=== PATIENT | male | born 1945 | race Caucasian/White ===

== ENCOUNTER 2017-05-08 18:39 | Observation (INO) ==
[2017-05-08 20:29] LABS: Bilirubin,Urine Negative (Negative); Blood,Urine Small (Negative); Clarity,Urine Clear (Clear); Color,Urine Yellow (Yellow); Glucose,Urine (UA) Normal (Normal); Ketones,Urine Trace mg/dL (Negative); Leukocyte Esterase,Urine Negative (Negative); Nitrite,Urine Negative (Negative); Protein,Urine Negative (Neg-Trace); Specific Gravity,Urine 1.021 (1.010-1.025); Urobilinogen,Urine Normal (Normal)
[2017-05-08 20:34] LABS: Bacteria,Urine None Seen per hpf (None-Few); Hyaline Casts,Urine None Seen per lpf (None-Few); Squamous Epithelial Cell,Urine None Seen per lpf (None-Few); WBC,Urine 0-3 per hpf (0-3)
[2017-05-08] MEDS ORDERED: 0.9 % Sodium Chloride 1,000 ML IVC ONE (21:13)
[2017-05-08] MEDS ORDERED: *HR* Morphine 2 MG/ML SYRINGE IVP ONE (21:13)
[2017-05-08] MEDS ORDERED: Ondansetron 4 MG/2 ML VIAL IVP ONE ×2 (21:13→23:45)
[2017-05-08 21:20] LABS: Basophils % 0.1 %; Hematocrit 37.7 % (37.5-50.1); Hemoglobin 12.4 g/dL (12.9-16.9); Immature Granulocytes % 0.6 % (0-4); Lymphocytes # 0.7 K/mcL (0.6-4.6); Lymphocytes % 7.8 %; Mean Corpuscular HGB Conc 32.9 g/dL (31.6-35.5); Mean Corpuscular Hemoglobin 28.8 pg (28.0-33.3); Mean Corpuscular Volume 87.7 fL (83.0-100.0); Monocytes # 0.3 K/mcL (0.0-1.3); Monocytes % 3.4 %; Neutrophils # 7.4 K/mcL (1.6-8.9); Platelet Count 211 K/mcL (140-400); Segmented Neutrophils % 88.1 %
[2017-05-08 21:36] LABS: Alanine Aminotransferase 22 Units/L (7-52); Albumin 3.8 g/dL (3.5-5.7); Albumin/Globulin Ratio 1.7 (1.1-2.2); Alkaline Phosphatase 56 Units/L (34-104); Aspartate Amino Transferase 22 Units/L (13-39); BUN/Creatinine Ratio 15 (6-26); Bilirubin,Direct 0.1 mg/dL (0.0-0.2); Bilirubin,Indirect 0.3 mg/dL (0.0-1.2); Bilirubin,Total 0.4 mg/dL (0.3-1.0); Blood Urea Nitrogen 12 mg/dL (8-23); Calcium 8.6 mg/dL (8.6-10.3); Carbon Dioxide 24 mEq/L (23-29); Chloride 104 mEq/L (98-107); Globulin 2.3 g/dL (2.4-3.5); Glucose 120 mg/dL (70-105); Lipase 13 Units/L (11-82); Osmolality,Calculated 281 (280-300); Potassium 3.5 mEq/L (3.5-5.1); Sodium 135 mEq/L (136-145); Total Protein 6.1 g/dL (6.4-8.9); eGFR For African Americans > 60 (> 60); eGFR For Non-African Americans > 60 (> 60)
--- NOTE | 2017-05-08 21:44 | Emergency Department Note ---
Disposition Clinical Impression: Intractable abdominal pain Abdominal pain Qualifiers: Abdominal location: unspecified location Qualified Code(s): R10.9 - Unspecified abdominal pain Disposition: Admitted As Inpatient Condition: Good [facility] - [facility] [Outside] Time of Disposition: 00:57 Abdominal Pain HPI - General Chief Complaint: ED Abdominal Pain Stated Complaint: abdominal pain Time Seen by Provider: 05/08/17 18:47 Source: EMS Nursing Notes Reviewed: Yes Vital Signs Reviewed: Yes - History of Present Illness HPI Narrative: Patient is a 71-year-old male that presents to the emergency department for excruciating abdominal pain that began 2 days ago. He states that it begins just under the xiphoid process and radiates down to the lower abdomen. The pain is located only in the center and not on the sides of his belly. Patient rates pain as an 8 out of 10 and describes as crampy. Nothing seems to make this pain better. Says it made worse if he moves or when he strains. His last bowel movement was Sunday. He states that he has been able to pass gas. He reports that the pain was made worse after he ate. Patient states that he had a colonoscopy done approximately 2-3 years ago and was told that he had "a small colon" with a couple of polyps but otherwise was normal. Pain Scale: 10 - Related Data Allergies Allergy/AdvReac Type Severity Reaction Status Date / Time No Known Allergies Allergy Verified 05/08/17 18:48 All systems ED: reviewed and negative except as stated. Gastrointestinal: Reports: abdominal pain Abdominal Pain PMH - Past Medical History Medical history: Reports: hypertension, kidney stones Male Surgical History: Reports: knee replacement, orthopedic, other Psychiatric history: Reports: depression - Social History Smoking status: Former smoker Alcohol use: Reports: none Drug use: Reports: marijuana Physical Exam - General Limitations: no limitations General appearance: alert, anxious - Head Head exam: atraumatic, normocephalic - Eye Eye exam: Present: normal appearance, EOMI - Neck Neck exam: Present: normal inspection, trachea midline - Respiratory Respiratory exam: Present: normal lung sounds bilaterally. Absent: respiratory distress, wheezes - Cardiovascular Cardiovascular exam: Present: regular rate, normal rhythm, +S1, +S2 - Abdominal Exam Abdominal exam: Present: soft, tenderness (Midline abdominal tenderness) Abdominal tenderness: Present: moderate - Neurological Exam Neurological exam: Present: alert, oriented X3 - Psychiatric Psychiatric exam: Present: normal affect, normal mood - Skin Skin exam: Present: warm, dry, intact Course Vital Signs Temperature 98.3 F 05/08/17 18:43 Pulse Rate 78 05/08/17 18:43 Respiratory Rate 14 05/08/17 18:43 Blood Pressure 213/91 05/08/17 18:43 O2 Sat by Pulse Oximetry 100 05/08/17 18:43 Temperature 98.3 F 05/08/17 18:43 Pulse Rate 66 05/09/17 00:54 Respiratory Rate 14 05/09/17 00:54 Blood Pressure 140/74 05/09/17 00:54 O2 Sat by Pulse Oximetry 97 05/09/17 00:54 Oxygen Delivery Oxygen Delivery Room Air Abdominal Pain - MDM Narrative Medical decision making narrative: Due to the patient having severe abdominal pain we will do a CT angiogram of the chest abdomen and pelvis to rule out dissection, aneurysm or any other intra -abdominal pathology. We will also order a CBC, BMP, hepatic panel, lipase and a lactic acid. CT angiography of the chest, abdomen and pelvis were negative for dissection or aneurysm. Patient is still in a significant amount pain. Written for her pain medication. We have also written for a GI cocktail. Urine does not appear to show a urinary tract infection. Patient states that he is still having abdominal pain and does not feel that he is able to go home. Upon reevaluation after receiving more pain medication and the GI cocktail he states that he is still having abdominal pain. The patient will be admitted to the hospital for intractable abdominal pain. I spoke with the hospitalist and they have accepted the patient to their service. The patient will be admitted to the hospital at this time. - Medical Records Medical records reviewed: Yes I reviewed the patient's medical records. - Lab Data Lab results reviewed: Yes I reviewed the patient's lab results. Result diagrams: 05/08/17 21:01 05/08/17 21:01 Lab Results 05/08/17 05/08/17 05/08/17 Range/Units 20:11 21:01 21:01 WBC 8.5 (4.3-11.1) K/mcL RBC 4.30 (4.19-5.50) M/mcL Hgb 12.4 L (12.9-16.9) g/dL Hct 37.7 (37.5-50.1) % MCV 87.7 (83.0-100.0) fL MCH 28.8 (28.0-33.3) pg MCHC 32.9 (31.6-35.5) g/dL RDW 13.0 (11.5-14.5) % Plt Count 211 (140-400) K/mcL MPV 11.0 (9.4-12.4) fL Immature Gran % 0.6 (0-4) % Seg Neutrophils % 88.1 % Lymphocytes % 7.8 % Monocytes % 3.4 % Eosinophils % 0.0 % Basophils % 0.1 % Neutrophils # 7.4 (1.6-8.9) K/mcL Lymphocytes # 0.7 (0.6-4.6) K/mcL Monocytes # 0.3 (0.0-1.3) K/mcL Eosinophils # 0.0 (0.0-0.6) K/mcL Basophils # 0.0 (0.0-0.2) K/mcL Sodium 135 L (136-145) mEq/L Potassium 3.5 (3.5-5.1) mEq/L Chloride 104 (98-107) mEq/L Carbon Dioxide 24 (23-29) mEq/L BUN 12 (8-23) mg/dL Creatinine 0.78 (0.70-1.30) mg/dL Est GFR ( Amer) > 60 (> 60) Est GFR (Non-Af Amer) > 60 (> 60) BUN/Creatinine Ratio 15 (6-26) Glucose 120 H (70-105) mg/dL Calculated Osmolality 281 (280-300) Lactic Acid (0.5-2.2) mmol/L Calcium 8.6 (8.6-10.3) mg/dL Total Bilirubin 0.4 (0.3-1.0) mg/dL Direct Bilirubin 0.1 (0.0-0.2) mg/dL Indirect Bilirubin 0.3 (0.0-1.2) mg/dL AST 22 (13-39) Units/L ALT 22 (7-52) Units/L Alkaline Phosphatase 56 (34-104) Units/L Troponin I (< 0.04) ng/mL Serum Total Protein 6.1 L (6.4-8.9) g/dL Albumin 3.8 (3.5-5.7) g/dL Globulin 2.3 L (2.4-3.5) g/dL Albumin/Globulin Ratio 1.7 (1.1-2.2) Lipase 13 (11-82) Units/L Urine Color Yellow (Yellow) Urine Clarity Clear (Clear) Urine pH 7.0 (5.0-8.0) pH Units Ur Specific [place] 1.021 (1.010-1.025) Urine Protein Negative (Neg-Trace) mg/dL Urine Glucose (UA) Normal (Normal) mg/dL Urine Ketones Trace H (Negative) mg/dL Urine Blood Small H (Negative) Urine Nitrite Negative (Negative) Urine Bilirubin Negative (Negative) Urine Urobilinogen Normal (Normal) mg/dL Ur Leukocyte Esterase Negative (Negative) Urine Microscopic RBC 5-15 H (0-3) per hpf Urine Microscopic WBC 0-3 (0-3) per hpf Ur Squamous Epith Cells None Seen (None-Few) per lpf Urine Bacteria None Seen (None-Few) per hpf Hyaline Casts None Seen (None-Few) per lpf Ur Culture Indicated? NO (NO) 05/08/17 05/08/17 Range/Units 21:46 21:46 WBC (4.3-11.1) K/mcL RBC (4.19-5.50) M/mcL Hgb (12.9-16.9) g/dL Hct (37.5-50.1) % MCV (83.0-100.0) fL MCH (28.0-33.3) pg MCHC (31.6-35.5) g/dL RDW (11.5-14.5) % Plt Count (140-400) K/mcL MPV (9.4-12.4) fL Immature Gran % (0-4) % Seg Neutrophils % % Lymphocytes % % Monocytes % % Eosinophils % % Basophils % % Neutrophils # (1.6-8.9) K/mcL Lymphocytes # (0.6-4.6) K/mcL Monocytes # (0.0-1.3) K/mcL Eosinophils # (0.0-0.6) K/mcL Basophils # (0.0-0.2) K/mcL Sodium (136-145) mEq/L Potassium (3.5-5.1) mEq/L Chloride (98-107) mEq/L Carbon Dioxide (23-29) mEq/L BUN (8-23) mg/dL Creatinine (0.70-1.30) mg/dL Est GFR ( Amer) (> 60) Est GFR (Non-Af Amer) (> 60) BUN/Creatinine Ratio (6-26) Glucose (70-105) mg/dL Calculated Osmolality (280-300) Lactic Acid 0.7 (0.5-2.2) mmol/L Calcium (8.6-10.3) mg/dL Total Bilirubin (0.3-1.0) mg/dL Direct Bilirubin (0.0-0.2) mg/dL Indirect Bilirubin (0.0-1.2) mg/dL AST (13-39) Units/L ALT (7-52) Units/L Alkaline Phosphatase (34-104) Units/L Troponin I < 0.03 (< 0.04) ng/mL Serum Total Protein (6.4-8.9) g/dL Albumin (3.5-5.7) g/dL Globulin (2.4-3.5) g/dL Albumin/Globulin Ratio (1.1-2.2) Lipase (11-82) Units/L Urine Color (Yellow) Urine Clarity (Clear) Urine pH (5.0-8.0) pH Units Ur Specific [place] (1.010-1.025) Urine Protein (Neg-Trace) mg/dL Urine Glucose (UA) (Normal) mg/dL Urine Ketones (Negative) mg/dL Urine Blood (Negative) Urine Nitrite (Negative) Urine Bilirubin (Negative) Urine Urobilinogen (Normal) mg/dL Ur Leukocyte Esterase (Negative) Urine Microscopic RBC (0-3) per hpf Urine Microscopic WBC (0-3) per hpf Ur Squamous Epith Cells (None-Few) per lpf Urine Bacteria (None-Few) per hpf Hyaline Casts (None-Few) per lpf Ur Culture Indicated? (NO) - EKG Data EKG attestation: Yes I reviewed and interpreted this EKG. EKG results narrative: EKG shows sinus rhythm with nonspecific T-wave abnormalities. Ventricular rate of 67 bpm, [place] interval of 145, QRS duration of 86, QTC of 440 with a normal axis. There are no ischemic changes noted on this EKG. Attestation Statement - Attestation Attestation: I, Niles Parrish DO, examined this patient [id number] and my medical decision-making was reviewed with Dr. Trey Doss, Resident Physician. I agree with the documented findings, disposition and treatment plan as described except to the extent set forth below. Please see my progress notes for details. 71-year-old male presents emergency room for evaluation of abdominal pain. He has had the symptoms since Sunday. He has been seen at 2 other facilities and had detailed workup completed. Patient is presenting here today because he said persistence of pain. Denies any recent trauma or injury. He has no other medical History this time. Vital signs reviewed and are otherwise unremarkable. Physical exam shows a thin appearing male that does appear to be in some mild distress at this time. Currently denying any nausea vomiting or diarrhea. Denies any dark stool or blood in his urine. Denies any chest pain shortness of breath headache or vision change. No fevers no chills. Denies any urinary symptoms or history of urinary tract infections or renal stones. Patient on examination does have what appears to be pain out of proportion to examination. His abdomen is benign except as described. Diffuse pain. CT angiography of the chest and abdomen were this time because he has had several evaluations without definitive diagnoses at this point is for persistently having pain. Screening laboratory workup will be resulted as well including EKG troponin and urinalysis. Pain and symptoms to be controlled at this time. Patient otherwise will have determination of disposition once workup is completed. Please see detailed documentation of physical exam, medical intervention, medical decision-making and disposition and the resident physician 's note. 0100 Patient has intractable abdominal pain despite negative imaging modalities and lab workup. His required narcotics 3 doses here in the emergency room. Patient will be admitted for further evaluation and disposition. Hospitalist paged admission process completed. No critical care is applied to this patient during the treatment and admission
[2017-05-08] MEDS ORDERED: *HR* HYDROmorphone (PF) 1 MG/ML SYRINGE IVP ONE (23:45)
[2017-05-09] MEDS ORDERED: GI Cocktail 40 ML EACH PO ONE (00:10)
--- NOTE | 2017-05-09 05:32 | Internal Med History&Physical ---
Date of Encounter: 05/09/17 Time of Encounter: 05:30 Assessment and Plan (1) Intractable abdominal pain Current visit: Yes Status: Acute Likely gastritis, duodenitis, or PUD. Consult GI in AM. Patient unsure what medication he takes for "upset stomach". Will start on IV protonix, Pepcid. Morphine prn breakthrough pain. NPO. Carafate when given diet. (2) Hypertension Current visit: Yes Status: Acute Hydralazine prn. Qualifiers: Hypertension type: essential hypertension Qualified Code(s): I10 - Essential (primary) hypertension Internal Medicine - H&P: HPI History of present illness: Patient is a 71-year-old male with history of hypertension presents to the emergency department for severe abdominal pain. Located in epigastric region, rated 10/10 and cramping sensation. Worsens with straining and is often affected with meals. Patient typically needs to keep food in his stomach or else gets severe pains. Initially these episodes have been going on for past several weeks but for past 3 days symptoms have significantly worsened. Has not been able to tolerate food since pain and has had little sleep. No known alleviating factor. Has not had any recent EGD, reports that he had a colonosocpy 3 years ago showing polyps. A CTA of abdomen/pelvis was done to evaluate for aneurysms which was negative. However it did show wall thickening of distal stomach, possibly from gastritis. Pain intractable requiring several doses of morphine in ED. GI cocktail was given and patient believes either that or the morphine was effective in pain treatment. Past Med Surg Social Fam HX - Past Medical History Medical history: hypertension, kidney stones Psychiatric history: depression - Past Surgical History Surgical History: cataract, knee replacement - Social History Smoking Status: Former smoker Smokeless Tobacco Status: No Alcohol use: none Drug use: marijuana - Family History Father History Unknown: Yes Adopted: [place]: Brian valentin Family Member Ethnicity: Non- Living Status: Age at : 74 Cause of : CAncer Hx Family Cardiac Disorders: Yes (Heart surgery) Hx Family Respiratory Disorders: No Hx Family Cancer: No Hx Family GI Disorders: No Hx Family Genitourinary Disorders: No Hx Family Endocrine Disorder: No Hx Family Musculoskeletal Disorders: No Hx Family Neuromuscular Disorders: No Hx Family Neurologic Disorders: No Hx Family HEENT Disorders: No Hx Family Autoimmune Disorders: No Hx Family Reproductive Disorders: No Hx Family Psychosocial Disorders: No Hx Family Medical Disorders: No Mother Name: Pretty Valentin Family Member Ethnicity: Non- Living Status: Age at : 86 Cause of : unknown Internal Medicine - H&P: Meds 3 Allergy/AdvReac Type Severity Reaction Status Date / Time No Known Allergies Allergy Verified 05/08/17 18:48 All Systems PM: A 10-system review of systems was performed and is negative for pertinent findings except as documented above in the HPI. - Constitutional Constitutional: no chills, no fever(s), no night sweats - EENT Eyes: no change in vision, no discharge, no pain, no photophobia Ears: no ear discharge, no ear pain, no tinnitus Nose, mouth and throat: no dysphagia, no nasal discharge, no neck pain, no sore throat - Cardiovascular Cardiovascular ROS IM: no chest pain, no diaphoresis, no dyspnea, no lightheadedness, no palpitations, no syncope - Respiratory Respiratory: no cough, no dyspnea, no wheezing, no excessive phlegm production - Gastrointestinal Gastrointestinal: abdominal pain, cramping, vomiting, no change in bowel habits , no change in stool character, no coffee ground emesis, no constipation, no diarrhea, no dysphagia, no hematemesis, no hematochezia - Constitutional Vitals: Temp Pulse Resp BP Pulse Ox 97.5 F L 65 14 148/81 97 05/09/17 03:21 05/09/17 03:21 05/09/17 03:21 05/09/17 03:21 05/09/17 03:21 General appearance: Present: A&O X 3, no acute distress - Head Head exam: Present: atraumatic, normocephalic - Cardiovascular Cardiovascular exam: Present: RRR, +S1, +S2. Absent: diastolic murmur, gallop, rubs, systolic murmur - GI/Abdominal GI/Abdominal exam: Present: normal bowel sounds, soft, tenderness, no peritoneal signs. Absent: firm, mass, rigid - Extremities Exam Extremities exam: Present: warm, radial pulses palpable and symmetrical. Absent : calf tenderness, cyanotic, pedal edema Internal Med - H&P Results - Labs CBC & Chem 7: 05/08/17 21:01 05/08/17 21:01
[2017-05-09] MEDS ORDERED: Ondansetron 4 MG/2 ML VIAL IVP PRN (05:39)
[2017-05-09] MEDS ORDERED: Naloxone 0.4 MG/ML INJ IVP PRN (05:45)
[2017-05-09] MEDS ORDERED: *HR* Morphine 2 MG/ML SYRINGE IVP PRN (05:51)
[2017-05-09] MEDS: Famotidine 20 MG/2 ML VIAL IVP SCH ×2 (06:41→21:16)
[2017-05-09] MEDS: Pantoprazole 40 MG VIAL IVP SCH (06:41)
[2017-05-09] MEDS: 0.9 % Sodium Chloride 1,000 ML IVC SCH (06:42)
[2017-05-09] MEDS ORDERED: *HR* Morphine 2 MG/ML SYRINGE IVP SCH (08:00)
--- NOTE | 2017-05-09 11:10 | Anesthesia Evaluation PreOp ---
Date of Encounter: 05/09/17 Time of Encounter: 11:08 - Past History Planned Operation: EGD Cardiac History: HTN Pulmonary History: Former smoker [employer]MER History: Denies Any Significant HX Other Medical History: Renal (stones) Anesthesia History: No Prior Anesthetic Complications, Past Anesthesia (TKA, cataracts) Alcohol Use: none Drug use: marijuana Medications and Allergies Aspirin [Lo-Dose Aspirin EC] 81 mg PO DAILY 05/09/17 [History] Hydrochlorothiazide [Microzide] 12.5 mg PO DAILY 05/09/17 [History] Lisinopril [Zestril] 40 mg PO DAILY 05/09/17 [History] Omeprazole [PriLOSEC] 20 mg PO DAILY 05/09/17 [History] Ondansetron HCl [Zofran] 4 mg PO Q6H 05/09/17 [History] Terazosin HCl 2 mg PO HS 05/09/17 [History] 3 Allergy/AdvReac Type Severity Reaction Status Date / Time No Known Allergies Allergy Verified 05/08/17 18:48 - Meds/Allergy Pre-op Review Medications Reviewed: Yes Allergies Reviewed: Yes Beta Blockers on Current Med List: No Anesthesia Results - Labs 05/08/17 21:01 05/08/17 21:01 Anesthesia Exam Selected Entries 05/09/17 10:32 Temperature 97.8 F Pulse Rate 64 Respiratory Rate 16 Blood Pressure 145/70 O2 Sat by Pulse Oximetry 96 Weight: 58kg NPO (# of Hours): 8 - HEENT Pupil (Motor): EOMI Teeth: Missing, Poor dentition (very loose right upper incisor, almost ready to fall out) Oral Opening: Greater than 3 - SHUTT[employer]MER LOC: Oriented [employer]UTT[employer]OCK [employer]IMMER Motor: Normal RUE, Normal LUE, Normal RLE, Normal LLE, Normal Face [employer]IMMER Sensory: Normal: RUE, LUE, RLE, LLE, Face - Cardiac Rhythm: Regular Murmur: None - Pulmonary Breath Sounds: bilateral Clear Respiratory Effort: Symmetrical Anesthesia Assess/Plan ASA Score: 2 Modified [place] Scale for Level of Consciousness: Cooperative, oriented, and tranquil Anesthetic Plan: MAC Monitoring Plan: Standard Monitors Recovery Plan: Other (agrees to MAC, told him there is a risk that the loose tooth may fall out with the procedure or if we need to manipulate the airway)
--- NOTE | 2017-05-09 11:52 | Gastroenterology Consult Note ---
<Kathe Arora - Last Filed: 05/09/17 11:47> Date of Encounter: 05/09/17 Time of Encounter: 10:30 - Assessment and plan (1) Abdominal pain Current Visit: Yes Status: Acute Assessment and plan: Pt complains of epigastric pain radiating down to his lower abdomen and nausea and vomiting for the past 3 weeks with no relief. CT showed thickening of distal stomach may be due to gastritis but needs EGD to evaluate for gastrits vs mass, peptic/duodenal ulcers. Continue PPI, antiemetics and pain meds as needed. Qualifiers: Abdominal location: epigastric Qualified Code(s): R10.13 - Epigastric pain (2) Nausea and vomiting Current Visit: Yes Status: Acute Assessment and plan: EGD today, PPI and antiemetics. CT as above. - Time Spent With Patient Total time spent is greater than 50% in coordination of care (as documented) at patient's floor/unit and/or counseling patient: GI History of Present Illness - Data of Consult Patient: new to practice Consult date: 05/09/17 Requesting Physician: Melvin Jane - Consult Narrative Reason for consult: abdominal/epigastric pain History of present illness: Mr. Valentin is a 71 year old male with a pmhx of hypertension, kidney stones and depression who presents to the emergency department for severe abdominal pain. Located in epigastric region, rated 10/10. He is also having abdominal cramping but denies any diarrhea. he denies BM for the past several days. He states pain was improved after eating until the past 3 days when pain become severe and he was unable to eat. A CTA of abdomen/pelvis was done to evaluate for aneurysms which was negative. However it did show wall thickening of distal stomach, possibly from gastritis. Pain has been relieved by morphine and GI coctail. He denies hematemesis, bloody or tarry stools. He states he has been seen at the [facility] and [facility] and given nausea medicine and sent alfredito. Labs reviewed and show Hgb 12.4, WBC 8.5, Platelets 211, N 135, AST 22, ALT 22, Alk phos 56, lipase 13. Colonoscopy: 2014 [place] polyps EGD: denies NSAIDS/ASA: denies Anticoagulants: none Past Med Surg Social Fam HX - Past Medical History Medical history: hypertension, kidney stones Psychiatric history: depression - Past Surgical History Surgical History: cataract, knee replacement - Social History Smoking Status: Former smoker Smokeless Tobacco Status: No Alcohol use: none Drug use: marijuana - Family History Father History Unknown: Yes Adopted: [place]: Brian valentin Family Member Ethnicity: Non- Living Status: Age at : 74 Cause of : CAncer Hx Family Cardiac Disorders: Yes (Heart surgery) Hx Family Respiratory Disorders: No Hx Family Cancer: No Hx Family GI Disorders: No Hx Family Genitourinary Disorders: No Hx Family Endocrine Disorder: No Hx Family Musculoskeletal Disorders: No Hx Family Neuromuscular Disorders: No Hx Family Neurologic Disorders: No Hx Family HEENT Disorders: No Hx Family Autoimmune Disorders: No Hx Family Reproductive Disorders: No Hx Family Psychosocial Disorders: No Hx Family Medical Disorders: No Mother Name: Pretty Valentin Family Member Ethnicity: Non- Living Status: Age at : 86 Cause of : unknown Review of Systems: GI: as per [place] GENERAL: denies fever or chills EYES: denies yellow discoloration ENT: denies pain with swallowing or difficulty swallowing CARDIO: denies chest pain, palpitations RESP: No Shortness of breath with exertion : denies change in color of urine NEURO: denies any weakness HEME: Denies any bruising MS: chronic joint pain and back pain. DERM: denies rash or itching PSYCH: history of anxiety and depression - Constitutional Vitals: Temp Pulse Resp BP Pulse Ox 97.8 F 64 16 145/70 96 05/09/17 10:32 05/09/17 10:32 05/09/17 10:32 05/09/17 10:32 05/09/17 10:32 Exam: CONSTITUTIONAL:~alert, no acute distress.~HEAD:~normocephalic.~EYES:~no jaundice.~NECK:~no obvious swelling.~HEART:~regular rate and rhythm, no murmurs. ~LUNGS:~bilateral good air entry.~ABDOMEN:~non distended, soft, tender epigastric area, no masses palpable, no organomegaly.~RECTAL EXAM:~Deferred.~ EXTREMITIES:~no clubbing, cyanosis or edema, scarring right knee~SKIN:~no stigmata of chronic liver disease.~NEUROLOGIC:~no obvious focal defect.~~~~ Results - Labs CBC & Chem 7: 05/08/17 21:01 05/08/17 21:01 Labs: Last Result Calcium 8.6 mg/dL (8.6-10.3) 05/08/17 21:01 Troponin I < 0.03 ng/mL (< 0.04) 05/08/17 21:46 Entire Visit Hgb 12.4 g/dL (12.9-16.9) L 05/08/17 21:01 Hct 37.7 % (37.5-50.1) 05/08/17 21:01 Total Bilirubin 0.4 mg/dL (0.3-1.0) 05/08/17 21:01 AST 22 Units/L (13-39) 05/08/17 21:01 ALT 22 Units/L (7-52) 05/08/17 21:01 Lipase 13 Units/L (11-82) 05/08/17 21:01 Consult Discharge Plan - Plan [facility] Care Provider[facility] - <Shena Blackburn - Last Filed: 05/09/17 14:34> Date of Encounter: 05/09/17 Time of Encounter: 13:00 - Time Spent With Patient Total time spent is greater than 50% in coordination of care (as documented) at patient's floor/unit and/or counseling patient: GI History of Present Illness - Data of Consult Requesting Physician: Melvin Jane - Consult Narrative History of present illness: Mr. Valentin is a 71 year old male - Constitutional Vitals: Temp Pulse Resp BP Pulse Ox 97.8 F 68 16 164/75 97 05/09/17 13:58 05/09/17 13:58 05/09/17 13:58 05/09/17 13:58 05/09/17 13:58 Results - Labs CBC & Chem 7: 05/08/17 21:01 05/08/17 21:01 Labs: Last Result Calcium 8.6 mg/dL (8.6-10.3) 05/08/17 21:01 Troponin I < 0.03 ng/mL (< 0.04) 05/08/17 21:46 Entire Visit Hgb 12.4 g/dL (12.9-16.9) L 05/08/17 21:01 Hct 37.7 % (37.5-50.1) 05/08/17 21:01 Total Bilirubin 0.4 mg/dL (0.3-1.0) 05/08/17 21:01 AST 22 Units/L (13-39) 05/08/17 21:01 ALT 22 Units/L (7-52) 05/08/17 21:01 Lipase 13 Units/L (11-82) 05/08/17 21:01 - Attending Attestation I examined this patient and my medical decision-making was reviewed with the Resident Physician. I agree with the documented findings, disposition and treatment plan as described except to the extent set forth below.
--- NOTE | 2017-05-09 13:11 | Event Note ---
Date of Encounter: 05/09/17 Time of Encounter: 13:09 Seen and examined at bedside. Patient is new to me, information obtained from chart review and patient report. In summary 71-year-old male who presented to [facility] on 05/09/2017 with complaints of abdominal pain. Still with abdominal pain, tenderness all my exam. Not tolerating oral intake. GI consulted and planning EGD. Further recommendations pending EGD results. ABD pain: Presented with persistent abdominal pain for the last [address] shows thickening of distal stomach concerning for gastritis. Evaluated by GI who is planning EGD to evaluate for gastritis versus mass, peptic/duodenal ulcers. NPO. Continue PPI. PRN antiemetics and pain meds
[2017-05-09] MEDS ORDERED: 0.9 % Sodium Chloride 1,000 ML IVC SCH (14:00)
[2017-05-09] MEDS ORDERED: *HR* Propofol 200 MG/20 ML VIAL IVP ONE (14:05)
--- NOTE | 2017-05-09 20:19 | Electrocardiograph Report ---
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
[2017-05-10] MEDS: 0.9 % Sodium Chloride 1,000 ML IVC SCH (01:49)
[2017-05-10 04:40] LABS: Basophils % 0.3 %; Eosinophils # 0.1 K/mcL (0.0-0.6); Eosinophils % 1.2 %; Hematocrit 35.6 % (37.5-50.1); Hemoglobin 11.7 g/dL (12.9-16.9); Immature Granulocytes % 0.3 % (0-4); Lymphocytes # 1.1 K/mcL (0.6-4.6); Mean Corpuscular HGB Conc 32.9 g/dL (31.6-35.5); Mean Corpuscular Hemoglobin 29.7 pg (28.0-33.3); Mean Corpuscular Volume 90.4 fL (83.0-100.0); Mean Platelet Volume 11.6 fL (9.4-12.4); Monocytes # 0.4 K/mcL (0.0-1.3); Monocytes % 6.5 %; Neutrophils # 4.4 K/mcL (1.6-8.9); Platelet Count 189 K/mcL (140-400); Red Blood Count 3.94 M/mcL (4.19-5.50); Red Cell Distribution Width 13.2 % (11.5-14.5); Segmented Neutrophils % 72.7 %
[2017-05-10 04:57] LABS: BUN/Creatinine Ratio 16 (6-26); Blood Urea Nitrogen 13 mg/dL (8-23); Calcium 8.4 mg/dL (8.6-10.3); Carbon Dioxide 25 mEq/L (23-29); Chloride 111 mEq/L (98-107); Glucose 81 mg/dL (70-105); Osmolality,Calculated 297 (280-300); Potassium 3.8 mEq/L (3.5-5.1); Sodium 144 mEq/L (136-145); eGFR For African Americans > 60 (> 60); eGFR For Non-African Americans > 60 (> 60)
[2017-05-10] MEDS: Famotidine 20 MG/2 ML VIAL IVP SCH (05:28)
[2017-05-10] MEDS: Pantoprazole 40 MG VIAL IVP SCH (05:31)
[2017-05-10 10:17] VITALS: BP 169/81
[2017-05-10] MEDS ORDERED: hydroCHLOROthiazide 25 MG TABLET PO SCH (10:45)
[2017-05-10] MEDS ORDERED: Lisinopril 20 MG TABLET PO SCH (10:45)
--- NOTE | 2017-05-10 10:46 | Discharge Summary ---
Date of Encounter: 05/10/17 Time of Encounter: 10:40 - Discharge Diagnosis (1) Duodenitis Priority: Primary Status: Acute (2) Intractable abdominal pain Priority: Primary Status: Acute (3) Hypertension Priority: Secondary Status: Acute Qualifiers: Hypertension type: essential hypertension Qualified Code(s): I10 - Essential (primary) hypertension - Discharge Medications Prescriptions: Omeprazole [PriLOSEC] 20 mg PO BID #60 capsule. Home Medications: Aspirin [Lo-Dose Aspirin EC] 81 mg PO DAILY 05/09/17 [History] Hydrochlorothiazide [Microzide] 12.5 mg PO DAILY 05/09/17 [History] Lisinopril [Zestril] 40 mg PO DAILY 05/09/17 [History] Ondansetron HCl [Zofran] 4 mg PO Q6H 05/09/17 [History] Terazosin HCl 2 mg PO HS 05/09/17 [History] Omeprazole [PriLOSEC] 20 mg PO BID #60 capsule. 05/10/17 [Rx] Allergies/Adverse Reactions: 3 Allergy/AdvReac Type Severity Reaction Status Date / Time No Known Allergies Allergy Verified 05/08/17 18:48 Date of admission: 05/09/17 02:46 Primary care physician: PCP LEONARD Consults: 05/09/17 05:45 Consult to Gastroenterology [CONS] Routine Consulting Provider: Gastroenterology Georgina Reason for Consult: Intractable abdominal pain Call Completed: No - Patient Status Disposition: Home, Self-Care Condition: Fair Overall status at discharge: patient is back to baseline - Discharge Instructions Follow Up With: [facility] [Outside] - 06/15/17 2:30 pm Shena Blackburn MD [Partnered Physician] - (2 weeks) Forms: ED Satisfaction Letter, Work/School Release - Diet and Activity Activity: resume usual activities as tolerated Diet: regular diet Hospital course: Mr. Valentin is a 71 year old male with history of hypertension who presented to the emergency department with complaints of severe abdominal pain. His pain was localized to the epigastric area. A CTA of abdomen/pelvis was done to evaluate for aneurysms which was negative, however it did show wall thickening of distal stomach, possibly from gastritis. He was admitted to the hospitalist service with a consult to GI. He was treated conservatively initially with IV fluids and pain control. He was taken for an EGD which showed duodenitis. GI was okay with him being discharged on PPI. I have increased his PPI from 20 mg daily to 40 mg daily. He will need follow-up with GI for biopsy results as well as further management. He was stable for discharge as he tolerated diet on 05/10/2017 - Time Spent with Patient Total time spent providing and/or coordinating discharge services: Greater than 30 minutes - Constitutional Vitals: Temp Pulse Resp BP Pulse Ox 98.2 F 72 16 169/81 95 05/10/17 10:13 05/10/17 10:13 05/10/17 10:13 05/10/17 10:13 05/10/17 10:13 General appearance: Present: A&O X 3, no acute distress Exam: GEN: NAD CVS: RRR. S1, S2, No m/r/g RESP: CTAB ABD: Soft, epigastric tenderness, ND, +BS EXT: No edema. 2+ DP. No rashes NEURO: Nonfocal - VTE Reasons for not Prescribing Prophylaxis: Treatment not Indicated - Low risk for VTE
[2017-05-11] MEDS ORDERED: Aspirin Enteric Coated 81 MG Tablet PO SCH (09:00)
== END 2017-05-10 12:50 | disposition home or self-care (01) ==
LOC: 3ANU 18:39 → EMEROO 18:39 → 3ANU 05-09 02:42
PROVIDERS: ADMIT Student in an Organized Health Care Education/Training Program; ATTEND Family Medicine
PROC: ENDOEBX (2017-05-09 13:20)